=== PATIENT | female | born 1985 | race Caucasian/White ===

== ENCOUNTER 2017-08-26 07:12 | Inpatient (IN) | payer OTHER ==
[~2017-08-26] VITALS: Ht 160 cm; Wt 3.2 kg
[2017-08-26] MEDS ORDERED: PRENATAL 19 TA1 EACH PO (08:19)
[2017-08-26] MEDS ORDERED: PNEU16DI2 (08:19)
== END 2017-08-29 12:23 | disposition home or self-care (01) | DRG 766 ==
LOC: OB/GYN 07:12 → LDR 07:12 → O/R 14:33 → OB/GYN 17:07
PROVIDERS: Obstetrics & Gynecology
PROC: 4A1HXCZ Monitoring of Products of Conception, Cardiac Rate, External Approach (ICD-10-PCS; 2017-08-26)
PROC: 4A033R1 Measurement of Arterial Saturation, Peripheral, Percutaneous Approach (ICD-10-PCS; 2017-08-26)
PROC: 10907ZC Drainage of Amniotic Fluid, Therapeutic from Products of Conception, Via Natural or Artificial Opening (ICD-10-PCS; 2017-08-26)
PROC: 10D00Z1 Extraction of Products of Conception, Low, Open Approach (ICD-10-PCS; principal; 2017-08-26 18:00)
DX: O33.9 Maternal care for disproportion, unspecified (principal); Z37.0 Single live birth; Z3A.40 40 weeks gestation of pregnancy

== ENCOUNTER 2018-08-12 07:17 | Inpatient (IN) | payer OTHER ==
[~2018-08-12] VITALS: Ht 160 cm; Wt 93.0 kg
[~2018-08-12 07:17] MED LIST: PNEU16DI2; PRENATAL 19 TA1 EACH PO
== END 2018-08-15 17:08 | disposition home or self-care (01) | DRG 785 ==
LOC: OB/GYN 07:17 → O/R 07:17 → OB/GYN 12:18
PROVIDERS: ADMIT Obstetrics & Gynecology
PROC: 0UL70ZZ Occlusion of Bilateral Fallopian Tubes, Open Approach (ICD-10-PCS; 2018-08-12)
PROC: 4A1HXCZ Monitoring of Products of Conception, Cardiac Rate, External Approach (ICD-10-PCS; 2018-08-12)
PROC: 10D00Z1 Extraction of Products of Conception, Low, Open Approach (ICD-10-PCS; principal; 2018-08-12 07:00)
DX: O82 Encounter for cesarean delivery without indication (principal); Z3A.39 39 weeks gestation of pregnancy; Z37.0 Single live birth; Z30.2 Encounter for sterilization